=== PATIENT | male | born 1975 | race African-American/Black ===

== ENCOUNTER 2017-09-16 10:27 | Day surgery (SDC) | payer OTHER, SELFPAY ==
[2017-09-15 14:52] VITALS: BMI 33.0
[2017-09-16] VITALS (10 sets, daily range): BP systolic 110–151; BP diastolic 63–98; PULSE 78–105; RESP 8–16; TEMP 36.3–37.1; O2SAT 95–100; BMI 33.0
--- NOTE | 2017-09-16 | DI.RAD.S_ITS ---
PROCEDURE: XR ANKLE RT MIN 3V INDICATIONS: PACU, post op. Fluoro shots were inadvertently deleted TECHNIQUE: 3 views of the ankle were acquired. COMPARISON: [facility], , XR ANKLE RT MIN 3V, 09/16/2017, 11:44. FINDINGS: Bones: ORIF of lateral and medial malleolar fractures are present. Hardware is intact with good anatomic alignment. Overlying cast material obscures fine detail evaluation. Soft tissues: No tibiotalar joint effusion. Achilles tendon appears normal. IMPRESSION: ORIF of bimalleolar fractures as above. Dictated by: Judith Medellin M.D. on 09/16/2017 at 15:51 Approved by: Judith Medellin M.D. on 09/16/2017 at 15:56
--- NOTE | 2017-09-16 | DI.RAD.S_ITS ---
PROCEDURE: XR ANKLE RT MIN 3V INDICATIONS: 42 year-old male with right ankle fracture fixation. TECHNIQUE: 2 intraoperative views of the ankle were acquired. COMPARISON: None available at the time of interpretation. FINDINGS: Bones: Serial fluoroscopic spot views demonstrate placement of medial malleolar fracture fixation screw, followed by distal fibula and syndesmotic fixation screws and plate. Ankle mortise is normally aligned. No suspicious bony lesions. Soft tissues: There is lateral malleolar soft tissue swelling. IMPRESSION: Fluoroscopic guidance for bimalleolar fracture fixation. Dictated by: Mike Swenson M.D. on 09/16/2017 at 15:32 Approved by: Mike Swenson M.D. on 09/16/2017 at 15:34
[2017-09-16] MEDS: LACTATED RINGERS 1,000 ML 42 ML IV (11:15)
--- NOTE | 2017-09-16 11:59 | PM.PREOP ---
Pre-operative Note Interval Note Pre-op Check: History & Physical Reviewed by Physician and Exam Performed
[2017-09-16] MEDS: CEFAZOLIN 1 GM VIAL 2 GM IV (12:25)
--- NOTE | 2017-09-16 14:59 | SUR.OPER ---
SUPINE ON GEL MATTRESS OR TABLE, HEAD ON ONE PILLOW, SAFETY STRAP TO ABDOMEN OVER BLANKET. ARMS <90 ABDUCTION AND SECURED ON PADDED ARMBOARDS BILATERAL. LEFT LEG SECURED WITH TAPE OVER BLANKET. RIGHT LEG POSITIONED PER SURGEON ON STACK OF BLANKETS IN SURGEON CONTROL.
[2017-09-16] MEDS: BUPIVACAINE 0.25% (PF) 30 ML VIAL INJ (15:08)
--- NOTE | 2017-09-16 15:40 | SUR.PHASEI ---
pt arrived with airway, airway out, vss, xrays done and read by dr payton. report to sheryl.
--- NOTE | 2017-09-16 15:46 | SUR.PHASEI ---
ASSUMED CARE OF PT AT THIS TIME. VSS. PT SITTING UP IN STRETCHER WITH EYES CLOSED, EASILY AROUSABLE TO VOICE WHEN SPOKEN TO. PT ABLE TO MOVE OPERATIVE FOOT TOES WHEN ASKED TO, +SENSTATION, CAP REFILL WNL AND +PULSE. PT DENIES ANY PAIN/DISCOMFORT OR NAUSEA AT THIS TIME. PT APPEARS COMFORTABLE.
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
[2017-09-16] MEDS: OXYCODONE/ACETAMINOPHEN 5/325 TABLET 2 TAB PO (16:08)
--- NOTE | 2017-09-16 17:07 | P.PCN_ITS ---
Procedures Date/Time Date of procedure: 09/16/17 Time of procedure: 17:00 Nerve Block Time out performed: Yes Local anesthetic used: other (15mL 0.5 opivacaine, 5mL 2* idocaine) Location of anesthetic used: interscalene Amount of anesthesia used (mL): 20 Nerve blocks: femoral and posterior tibial Procedure successful: Yes Patient tolerated procedure: well Complications: none Additional comments: Risks and benefits discussed, including bleeding, infection , intravascular injection, nerve damage, block failure. Standard ASA monitors, NC O2. Pt supine. Chloroprep site preparation, sterile technique. Adductor canal identified medial mid thigh (femoral A/V/N) with US guidance. 1mL 2% lidocaine skin wheal. 21g x 100mm Pajunk advanced with in-plane US guidance to adductor canal. Negative aspiration. 20mL LA (5mL 2% lido w/ epi + 15mL 0.5% ropiv) injected with intermittent negative aspiration. Good LA spread noted on US. No pain, no paraesthesia. Leg elevated for lateral popliteal block. Chloroprep site preparation. Sciatic nerve identified in popliteal fossa, traced proximally and distally to identify bifurcation. Lido local skin wheal. 21g x 100mm Pajunk advanced with in plane US guidance to sciatic nerve proximal to bifurcation. Negative aspiration. 20mL LA (5mL 2% lido + 15mL 0.5 % ropiv) injected with intermittent negative aspiration. Good LA spread noted on US. Pt tolerated procedure well. Vital signs stable. Pain rapidly improved to 0/10.
--- NOTE | 2017-09-16 18:13 | SUR.PHASEII ---
Block start time [1645] . Monitoring initiated and maintained throughout procedure. Oxygen and medications given per anesthesiologist instructions. Patient remained stable throughout procedure, no adverse reactions noted. Block end time [1700]. PT AT BEDSIDE. PT ALERT AND TALKING TO STAFF DURING PROCEDURE, VSS REMAINED STABLE THROUGHOUT BLOCK DONE BY DR. JANSEN.
== END 2017-09-16 17:15 | disposition home or self-care (01) ==
PROVIDERS: PCP Nurse Practitioner Family; Visit Provider Orthopaedic Surgery
PROC: 0SSF04Z Reposition Right Ankle Joint with Internal Fixation Device, Open Approach (ICD-10-PCS; CPT 27814; principal; 2017-09-16 12:00)
DX: S82.841A Displaced bimalleolar fracture of right lower leg, initial encounter for closed fracture (principal); V19.3XXA Pedal cyclist (driver) (passenger) injured in unspecified nontraffic accident, initial encounter; G47.33 Obstructive sleep apnea (adult) (pediatric); Z72.0 Tobacco use
CPT/HCPCS: 27814; 64450; 73610; 76001; J0690; J1100; J1885; J2250; J2405; J2704; J3010

== ENCOUNTER → 2021-05-15 12:03 | Outpatient (CLI) | payer OTHER, SELFPAY ==
--- NOTE | 2021-05-15 12:06 | DI.ECHO.S_ITS ---
[place] [facility]---------+ [facility] +---------+ : : [address] : [place] [address] : : : : [id number] : : : : Phone: [phone]+ Echocardiogram Report + + :Name: GARCIA GALLAGHER JR Study Date: 05/15/2021 Height: 73.5 in: :[facility] ReadingLocation: Weight: 250 lb : : Gender: Male BSA: 2.4 m2 : :: 1975 Age: 45 yrs BP: 135/88 mmHg: :Reason For Study: Abnormal ECG : :Ordering Physician: Albaro, : :Stefan Munoz Performed By: Lloyd Hutchinson : :Referring: Stefan Irvin : + + Interpretation Summary TDS Left ventricular ejection fraction is estimated to be 45 +/- 5%. There is mild global hypokinesis of the left ventricle. There is inferior wall hypokinesis is suspected. There is no significant valvular heart disease. Procedure: A two-dimensional transthoracic echocardiogram with color flow and Doppler was performed. The study quality was technically adequate. The subcostal views were difficult to obtain and are suboptimal in quality. There is no prior echocardiogram noted for this patient. The patient was in normal sinus rhythm during the exam. Left Ventricle: The left ventricle is normal in size and wall thickness. Left ventricular ejection fraction is estimated to be 45 +/- 5%. There is mild global hypokinesis of the left ventricle. There is inferior wall hypokinesis. Right Ventricle: The right ventricle is normal size. Right ventricular systolic function is borderline reduced. Atria: The left atrial size is normal. Borderline right atrial enlargement. Mitral Valve: The mitral valve leaflets appear borderline thickened, but open well. There is trace mitral regurgitation. Aortic Valve: The aortic valve is trileaflet. The aortic valve opens well. There is trace aortic regurgitation. Tricuspid Valve: The tricuspid valve is normal. There is a trace or physiologic amount of tricuspid regurgitation. Pulmonary artery pressures cannot be estimated because of the lack of a measurable TR jet velocity. Pulmonic Valve: The pulmonic valve leaflets are thin and pliable; valve motion is normal. There is a trace or physiologic amount of pulmonic regurgitation. Great Vessels: The aortic root is normal size. The ascending aorta is normal in size. The aortic arch is normal in size. The inferior vena cava was not visualized. Pericardium/ Pleura There is no pericardial effusion. There is an anterior echo-free space consistent with a fat pad. There is no pleural effusion. MMode/2D Measurements & Calculations LVIDd: 5.1 cm LVOT diam: 2.3 cm LVIDs: 3.4 cm Ao root diam: 3.5 cm FS: 33.3 % asc Aorta Diam: 3.3 cm IVSd: 0.90 cm Ao Arch Diam (Prox Trans): 3.1 cm LVPWd: 0.90 cm LV berg. diameter/BSA (cm/m^2): 2.1 LV sys. diameter/BSA (cm/m^2): 1.4 LA A2 area: 18.6 cm2 RA long axis: 5.1 cm LA A4 area: 13.4 cm2 LA length (vol): 5.3 cm LA vol: 40.1 ml LA vol index: 16.9 ml/m2 LVLs ap4: 6.9 cm LVLd ap2: 7.8 cm LVLs ap2: 6.9 cm TAPSE_phl: 1.6 cm Doppler Measurements & Calculations Ao V2 max: 93.3 cm/sec LVOT Max Sunny: 83.6 cm/sec Ao V2 mean: 72.4 cm/sec LV V1 max P.8 mmHg Ao max P.0 mmHg LV V1 VTI: 16.3 cm Ao mean P.0 mmHg SARA(I,D): 3.5 cm2 Ao V2 VTI: 19.1 cm SARA(V,D): 3.7 cm2 sev ratio: 0.85 SARA indexed to BSA (cm^2/m^2): 1.5 MV E max sunny: 46.3 cm/sec SV(LVOT): 67.7 ml MV A max sunny: 43.3 cm/sec MV E/A: 1.1 Med Peak E' Sunny: 4.7 cm/sec E/E' med: 9.8 Lat Peak E' Sunny: 5.9 cm/sec E/E' lat: 7.8 E/e' average: 8.8 MV dec time: 0.36 sec AV VR_phl: 0.90 MV P1/2t-pr_phl: 104.0 msec SARA(VTI)/BSA_phl: 1.5 Reading Physician:07:34 PM
== END ==
PROVIDERS: PCP Nurse Practitioner Family; Referring Provider Orthopaedic Surgery; Visit Provider Orthopaedic Surgery
DX: R94.31 Abnormal electrocardiogram [ECG] [EKG] (principal)
CPT/HCPCS: 93306